=== PATIENT | female | born 1970 | race Caucasian/White ===

== ENCOUNTER 2016-12-16 22:21 | Emergency (ER) | payer OTHER ==
[2016-12-16] MEDS ORDERED: IOPAMIDOL 370 (76%) IV.SOLN 150 ML IV ONE (22:22)
[2016-12-17] MEDS ORDERED: FAMOTIDINE 20 MG TABLET ONE ×7 (01:00)
[2016-12-17] MEDS ORDERED: DICYCLOMINE HCL 10 MG CAPSULE ONE (01:00)
[2016-12-17] MEDS ORDERED: METRONIDAZOLE 500 MG TABLET ONE (02:45)
--- NOTE | 2016-12-17 07:33 | RAD ---
ABDOMEN 2 VIEWS W PA CHEST COMPARISON: None. HISTORY: Diffuse abdomen pain about 4 hours duration. FINDINGS: Views: Frontal chest, supine abdomen, upright abdomen. Lungs: Normal. Heart and vessels: Normal. Trachea and bronchi: Normal. Mediastinum and rick: Normal. Costophrenic sulci: Normal. Chest wall: Normal. Pneumoperitoneum: None. Bowel gas pattern: Dilated small intestine. Solid organs: Normal. Calcification: Normal. Bones: Normal. Surgical clips: Right upper quadrant and left upper quadrant. IMPRESSION: Mildly dilated loops of small intestine in the mid abdomen. Early small bowel obstruction versus ileus.
--- NOTE | 2016-12-17 10:43 | CT ---
ABD/PELVIS W/ CON COMPARISON: Acute abdomen series, 12/17/2016 HISTORY: 46-year-old female with diffuse abdominal pain and started 4 hours prior. Technique: No oral contrast. Intravenous injection 125 mL Isovue 370. Using a [employer] Aquilion [address] scanner, images were obtained from the diaphragm to the floor the pelvis. An automated dose reduction technique was used to minimize patient radiation dose. Dose information: CTDIvol (mGy): 42.40 DLP(mGycm): 2341.40 FINDINGS: Lung bases: Left posterior diaphragmatic hernia containing fat. Inferior mediastinum and heart: Normal. Liver: Low-attenuation. Gallbladder: Cholecystectomy to Bile ducts: Normal. Pancreas: Normal. Spleen: Normal. Adrenal glands: Normal. Kidneys: Normal. Ureters: Normal Urinary bladder: Normal. Uterus and adnexa: Hysterectomy Blood vessels: Normal Lymph nodes: Normal Stomach: Surgical clip near the gastric fundus. Possible fundoplication. Duodenum: Normal Small intestine: Minimal free fluid in the mesentery. Appendix: Normal Colon: Normal Abdominal wall and supporting musculature: Normal Bones: L5-S1 severe disc narrowing. IMPRESSION: 1. Free fluid in the mesentery, evidence of enteritis. 2. Incidental findings include cholecystectomy, fatty infiltration of the liver, L5-S1 severe disc narrowing. Preliminary report by [facility] radiologist Eduardo Baird MD 12/17/1702: 44
== END 2016-12-17 04:36 | disposition home or self-care (01) ==
LOC: ED 22:21
DX: K52.9 Noninfective gastroenteritis and colitis, unspecified (principal); E66.9 Obesity, unspecified